=== PATIENT | female | born 1975 | race Caucasian/White ===

== ENCOUNTER 2018-12-10 18:18 | Emergency (ER) | payer OTHER ==
[2018-12-10 18:28] VITALS: BP 135/80
[2018-12-10 19:30] LABS: Bilirubin,Urine NEG (Negative); Blood,Urine MOD (Negative); Color,Urine Straw (Yellow); Protein,Urine <15 mg/dL mg/dL (Negative); Urobilinogen,Urine < 2.0 mg/dL (<2.0)
[2018-12-10 19:31] LABS: HCG Qualitative,Urine Negative (Negative)
[2018-12-10] MEDS ORDERED: TORADOL IM ONE (21:02)
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
== END 2018-12-10 21:30 | disposition home or self-care (01) ==
LOC: ED 18:18
DX: S16.1XXA Strain of muscle, fascia and tendon at neck level, initial encounter (principal); V49.59XA Passenger injured in collision with other motor vehicles in traffic accident, initial encounter; Y93.89 Activity, other specified; Y92.89 Other specified places as the place of occurrence of the external cause; Y99.8 Other external cause status
CPT/HCPCS: 81001; 81025; 96372; 99283; J1885